=== PATIENT | male | born 1995 | race Caucasian/White ===

== ENCOUNTER 2023-09-23 15:42 | Emergency (ER) | payer OTHER, SELFPAY ==
[2023-09-23 15:48] VITALS: BP 151/96; PULSE 85; RESP 16; TEMP 36.3; O2SAT 96; BMI 40.6
--- NOTE | 2023-09-23 16:13 | PC.NURSE ---
laceration to 2nd digit. Good CMS, moderate bleeding, pressure applied.
--- NOTE | 2023-09-23 16:31 | ED.WOUNDLAC ---
HPI - Wound/Laceration <Julian Boo PA-C - Last Filed: 09/23/23 16:46> General Chief Complaint: Wound/Laceration Stated Complaint: left index finger laceration Time Seen by Provider: 09/23/23 16:05 History of Present Illness HPI narrative: This is a 28-year-old male presents emergency department complaining of a left 2nd digit laceration. He was moving a piece of glass when it shattered causing a laceration to the dorsal aspect of the DIP of the left 2nd digit. He denies any changes in range of motion. States his tetanus is up-to-date. States that there is a very low chance of any kind of foreign body. Related Data Allergies Allergy/AdvReac Type Severity Reaction Status Date / Time escitalopram [From Lexapro] AdvReac Verified 09/23/23 15:50 Review of Systems <Julian Boo PA-C - Last Filed: 09/23/23 16:46> Review of Systems Narrative: GENERAL: Denies chills, fatigue, malaise, fever, sweats. HEENT: Denies sinus pain, ear pain, sore throat, difficulty swallowing, dizziness. RESPIRATORY: Denies dyspnea, cough, wheezing, hemoptysis, sputum. CARDIOVASCULAR: Denies chest pain, palpitations, orthopnea, edema, GASTROINTESTINAL: Denies nausea, vomiting, abdominal pain, diarrhea, constipation, melena. : Denies dysuria, frequency, incontinence, hematuria, urinary retention. MUSCULOSKELETAL: denies weakness, joint pain, or bony pain SKIN: Finger laceration NEUROLOGIC: Denies weakness, headache, numbness, change in speech, confusion, seizures, incoordination. PSYCHIATRIC: No concerning psychosocial issues. 12 point review of systems is negative except for those stated above Exam <Julian Boo PA-C - Last Filed: 09/23/23 16:46> Narrative Exam Narrative: GENERAL: Well-developed patient, in mild distress. HEAD: Atraumatic. Normocephalic. EYES: Pupils equal round and reactive. Extraocular motions intact. No scleral icterus. No injection or drainage. ENT: Nose without bleeding, purulent drainage. Throat without erythema, tonsillar hypertrophy or exudate. Airway patent. NECK: Trachea midline. Non tender EXTREMITIES: No edema or joint tenderness. BACK: Nontender without deformity or crepitance. No flank tenderness. NEURO: AOx3. SKIN: Approximately 1.5 cm laceration to the dorsal aspect of the DIP joint of the left 2nd digit. Full extension and flexion at the IP joint. No active bleeding. Neurovascularly intact throughout. 2+ capillary refill distally Initial Vital Signs Initial Vital Signs: Vital Signs Temperature 97.3 F L 09/23/23 15:48 Pulse Rate 85 09/23/23 15:48 Respiratory Rate 16 09/23/23 15:48 Blood Pressure 151/96 H 09/23/23 15:48 Pulse Oximetry 96 09/23/23 15:48 Oxygen Delivery Method Room Air 09/23/23 15:48 <DO Sherman Diaz Last Filed: 09/23/23 17:20> Initial Vital Signs Initial Vital Signs: Vital Signs Temperature 97.3 F L 09/23/23 15:48 Pulse Rate 85 09/23/23 15:48 Respiratory Rate 16 09/23/23 15:48 Blood Pressure 151/96 H 09/23/23 15:48 Pulse Oximetry 96 09/23/23 15:48 Oxygen Delivery Method Room Air 09/23/23 15:48 Procedures <MOR Lee Last Filed: 09/23/23 16:46> Laceration Repair Laceration 1: Time of procedure: 16:33 Site: other (Left 2nd digit) Side (If applicable): left Size (cm): 1.5 Description: linear Depth: simple, single layer Pre-repair: irrigated extensively Skin layer closed with: dermabond Course <MOR Lee Last Filed: 09/23/23 16:46> Vital Signs Vital signs: Vital Signs - 8 hr 09/23/23 15:48 Temperature 97.3 F L Pulse Rate 85 Respiratory Rate 16 Blood Pressure 151/96 H Pulse Oximetry 96 Oxygen Delivery Method Room Air <DO Sherman Diaz Last Filed: 09/23/23 17:20> Vital Signs Vital signs: Vital Signs - 8 hr 09/23/23 15:48 Temperature 97.3 F L Pulse Rate 85 Respiratory Rate 16 Blood Pressure 151/96 H Pulse Oximetry 96 Oxygen Delivery Method Room Air MDM - Wound/Laceration <MOR Lee Last Filed: 09/23/23 16:46> MDM Narrative Medical decision making narrative: This is a 28-year-old male presents emergency department due to a superficial laceration to the dorsal aspect of the left 2nd digit. Wound was closed with Dermabond without complications. He would full flexion-extension of the D IP joint very low concern for any tendon injury. Recommended routine wound monitoring for any signs of infection. Patient's tetanus was up-to-date. CC: Finger laceration Complicating co-morbidities: None Data collected from: Previous notes Medical records reviewed: Patient has not been to this emergency department in the past Differential considered, but not limited to: Laceration, tendon injury, foreign body Exam documented above, pertinent findings include: Superficial laceration to the dorsal aspect of the left 2nd digit. Full flexion-extension at the PIP joint, low concern for tendon injury Lab Test results independently reviewed as above.: None obtained Imaging studies independently reviewed: None obtained Scores Used: None MIPS Elements: None Consultations: None Treatments: Incision closed with Dermabond without complications Re-evaluations: None Discussion: Discussed plan with the patient was comfortable with the plan Diagnosis: Left finger laceration Disposition: see below, along with detailed discharge instructions that have been reviewed with patient as well as indications for ED re-evaluation and additional outpatient follow up Discharge Plan Departure Patient Disposition: Home Clinical Impression: Laceration Instructions: DI for Laceration Repair-Skin Glue Activity Restrictions/Additional Instructions: Thank you for coming to the [facility] Emergency Department today. I am glad that we are able to close the laceration. This should heal up on its own. Please keep an eye on the wound for any spreading redness or purulent discharge or drainage, if this develops please return to the walk-in clinic or here for antibiotics. The skin glue should wear off over time. I hope you feel better soon. Please follow up with your primary care provider within a week if your symptoms continue. If you do not have a primary care provider please contact the [facility] Resource line at [phone]. They will ask some questions about your medical history and help you get set up with a provider in the community. Referrals: Miscellaneous,Doctor, [Primary Care Provider] - Stand Alone Forms: Patient Portal/API ED Sign-out <Duane Robles DO - Last Filed: 09/23/23 17:20> Cosign ED Attending Cosignature Attestation: Dr Robles Co-Sign Statement: I was available for consultation during this patient's emergency department visit. This chart is signed by myself for administrative purposes only. I did not have direct contact with this patient during this visit. They were seen independently by the APC.
== END 2023-09-23 16:49 | disposition home or self-care (01) ==
PROVIDERS: Emergency Provider Physician Assistant Medical
DX: S61.211A Laceration without foreign body of left index finger without damage to nail, initial encounter (principal); W25.XXXA Contact with sharp glass, initial encounter; Y93.89 Activity, other specified; Y99.0 Civilian activity done for income or pay
CPT/HCPCS: 12001; 99282; 99283